=== PATIENT | male | born 1960 | race Two or more races ===

== ENCOUNTER 2019-05-02 21:32 | Inpatient (IN) | payer BC ==
[~2019-05-02] VITALS: Ht 177.8 cm; Wt 72.8 kg
[2019-05-02] MEDS ORDERED: PIPERACILLIN-TAZOB 3.375GM 100 ML IV ONE (22:00)
[2019-05-02] MEDS ORDERED: VANCOMYCIN 1GM/250ML 250 ML IV ONE (22:00)
[2019-05-02 22:58] LABS: Basophils # (auto) 0.1 uL; Basophils % (auto) 0.6 % (0.0-2.0); Eosinophils # (auto) 0.3 uL; Eosinophils % (auto) 2.6 % (0.0-7.0); Hematocrit 40.3 % (41.0-53.0); Hemoglobin 13.1 g/dL (13.5-17.5); Lymphocytes # (auto) 2.4 uL; Lymphocytes % (auto) 23.1 % (10.0-50.0); Mean Corpuscular Hemoglobin 27.3 pg (28.0-32.0); Mean Corpuscular Hgb Conc. 32.6 g/dL (32.0-36.0); Mean Corpuscular Volume 83.6 fL (80.0-100.0); Monocytes % (auto) 9.4 % (0.0-12.0); Neutrophils # (auto) 6.6 uL; Neutrophils % (auto) 64.3 % (37.0-80.0); Platelet Count (auto) 399 10^3/uL (140-450); Red Blood Cells 4.82 10^6/uL (4.5-5.90); Red Cell Distribution Width 14.3 % (11.8-14.3); White Blood Cell 10.4 10^3/uL (4.4-10.8)
[2019-05-02 23:10] LABS: Calcium 9.7 mg/dL (8.5-10.1); Potassium 4.2 mmol/L (3.5-5.1)
[2019-05-02 23:13] LABS: Bilirubin, Total 0.5 mg/dL (0.2-1.0); Total Protein 8.7 g/dL (6.4-8.2)
[2019-05-03] MEDS ORDERED: MORPHINE SULFATE 4 MG/ML SYR/VIAL ONE (04:04)
[2019-05-03] MEDS ORDERED: ONDANSETRON HCL 4 MG/2 ML VIAL ONE (04:04)
[2019-05-03] MEDS ORDERED: ACETAMINOPHEN 325 MG TAB PO PRN (06:15)
[2019-05-03] MEDS ORDERED: ONDANSETRON HCL 4 MG/2 ML VIAL IV PRN (06:15)
[2019-05-03] MEDS ORDERED: MORPHINE SULF INJ 2 MG/ML SYRINGE 1ML IV PRN (06:15)
[2019-05-03] MEDS ORDERED: VANCOMYCIN PER PHARMACY 0 MG IV SCH (06:15)
[2019-05-03] MEDS ORDERED: DEXTROSE (50%) 50ML SYRG IV PRN (06:30)
[2019-05-03] MEDS: SODIUM CHLORIDE 0.9% 1,000 ML IV SCH ×2 (06:57→19:00)
[2019-05-03 07:24] LABS: Basophils # (auto) 0.1 uL; Basophils % (auto) 0.9 % (0.0-2.0); Eosinophils # (auto) 0.2 uL; Eosinophils % (auto) 2.4 % (0.0-7.0); Hematocrit 37.1 % (41.0-53.0); Hemoglobin 12.2 g/dL (13.5-17.5); Lymphocytes % (auto) 19.7 % (10.0-50.0); Mean Corpuscular Hemoglobin 27.6 pg (28.0-32.0); Mean Corpuscular Volume 83.8 fL (80.0-100.0); Monocytes % (auto) 9.4 % (0.0-12.0); Neutrophils # (auto) 6.9 uL; Neutrophils % (auto) 67.6 % (37.0-80.0); Platelet Count (auto) 342 10^3/uL (140-450); Red Blood Cells 4.43 10^6/uL (4.5-5.90); White Blood Cell 10.2 10^3/uL (4.4-10.8)
[2019-05-03 07:37] LABS: BUN/Creatinine Ratio 14.9; Calcium 9.1 mg/dL (8.5-10.1); Potassium 4.2 mmol/L (3.5-5.1)
[2019-05-03] MEDS: ACCU-CHEK COMFORT CURVE STRIP VI SCH ×4 (08:00→20:00)
[2019-05-03 08:25] VITALS: BP 159/98
[2019-05-03 08:29] VITALS: BP 159/98
[2019-05-03] MEDS: PIPERACILLIN-TAZOB 3.375GM 100 ML IV SCH ×3 (08:52→21:53)
[2019-05-03] MEDS: PANTOPRAZOLE 40 MG TAB PO SCH (08:53)
[2019-05-03] MEDS: HYDROcodone-ACET 5/325MG TAB PO PRN ×3 (08:53→20:33)
[2019-05-03] MEDS: InsuLIN REG 1unit/0.01ml Soln (100units/ml) SC SCH ×4 (08:56→20:00)
[2019-05-03] MEDS ORDERED: METF-370 PO (09:01)
[2019-05-03] MEDS ORDERED: GLIP5TAB12 PO (09:01)
[2019-05-03] MEDS ORDERED: SITA50TA PO (09:01)
[2019-05-03] MEDS ORDERED: CYCL7.5T15 PO (09:01)
[2019-05-03] MEDS ORDERED: NAP500T PO (09:01)
--- NOTE | 2019-05-03 12:20 | NUR ---
WOUND CARE NOTE: Wound care in to see patient per wound care request regarding "wound to occipital". Bedside nurse took photograph of patient's wound upon admission for reference. Patient is 59 years old male with admitting diagnosis of Insect Bite with Cellulitis. He has history of DM. Patient is resting in bed in Rm 285B. He's awake, alert and fully oriented. He's in no stated pain at this time. He's ambulatory and self turn and reposition. His current Sarath score is 22. Noted patient's posterior distal head/neck area is dark red, and indurated. There's two open draining wound to proximal (0.5x1cm) and to distal (0.5x0.5cm). Patient and reported that wound started about eight days ago. Patient noted a pimple like to lower head/neck area and progress during the day with redness and swelling. patient and thinks that patient got bitten by spider. Cleansed patient's posterior neck wound with wound cleanser, patted dry with sterile gauze, applied Thera honey gel, covered with absorbent pad and secured with Medipore tape. Patient tolerated well and denies any other wound. RECOMMENDATION: Daily/PRN dressing change to posterior neck wound per MD order, Dietary consult, continue monitoring by wound care while patient is hospitalized. Addendum: 05/03/19 at 1746 by Anjali Curtis RN Amended: Links added.
[2019-05-03 12:35] VITALS: BP 148/78
[2019-05-03] MEDS: VANCOMYCIN 1,250 MG in D5W 5% 250 ML IV SCH (14:20)
[2019-05-03 17:24] VITALS: BP 146/94
[2019-05-03] MEDS ORDERED: AMLO5TAB15 PO (18:03)
[2019-05-03 20:00] VITALS: BP 161/101
[2019-05-03 23:21] VITALS: BP 161/101
[2019-05-04] MEDS: VANCOMYCIN 1,250 MG in D5W 5% 250 ML IV SCH ×2 (01:51→14:24)
[2019-05-04] MEDS: PIPERACILLIN-TAZOB 3.375GM 100 ML IV SCH ×4 (03:45→21:03)
[2019-05-04] MEDS: ACCU-CHEK COMFORT CURVE STRIP VI SCH ×7 (03:59→23:49)
[2019-05-04] MEDS: InsuLIN REG 1unit/0.01ml Soln (100units/ml) SC SCH ×7 (03:59→23:50)
[2019-05-04 05:10] VITALS: BP 145/97
--- NOTE | 2019-05-04 08:00 | NUR ---
Received pt resting in bed, call light within reach, pt reports pain on rt posterior side of neck 05/10, will medicate pt as order, will continue to monitor pt.
[2019-05-04] MEDS: HYDROcodone-ACET 5/325MG TAB PO PRN ×2 (08:13→19:42)
[2019-05-04 09:09] VITALS: BP 136/89
[2019-05-04] MEDS: SODIUM CHLORIDE 0.9% 1,000 ML IV SCH ×2 (09:28→23:07)
[2019-05-04] MEDS: PANTOPRAZOLE 40 MG TAB PO SCH (09:29)
[2019-05-04] MEDS: amLODIPine BESYLATE 5 MG TAB PO SCH (09:29)
--- NOTE | 2019-05-04 10:05 | NUR ---
Dressing change Cleansed patient's posterior neck wound with wound cleanser, patted dry with sterile gauze, applied Thera honey gel, covered with absorbent pad and secured with Medipore tape.
--- NOTE | 2019-05-04 11:15 | NUR ---
Dr. Lynne at bed side to see pt, doctor discussed the plan of care with pt.
[2019-05-04 14:49] VITALS: BP 140/84
[2019-05-04 17:06] VITALS: BP 141/84
--- NOTE | 2019-05-04 19:30 | NUR ---
Opening Shift Note Assumed care of patient, awake and alert oriented x4. No S/S of distress/SOB noted. Bed is in lowest locked position with bed rails up x2 and call light is within reach of patient. Instructed on POC and to call for assist PRN. Instructed patient that they will be NPO after midnight incase of procedure. Patient verbalized understanding.
--- NOTE | 2019-05-04 21:25 | NUR ---
Dressing changed Cleansed patient's posterior neck wound with wound cleanser, patted dry with sterile gauze, applied and Thera honey gel, covered with absorbent pad and secured with Medipore tape.
[2019-05-04 22:00] VITALS: BP 154/94
[2019-05-05] MEDS: VANCOMYCIN 1,250 MG in D5W 5% 250 ML IV SCH ×2 (02:02→14:15)
[2019-05-05] MEDS: ACCU-CHEK COMFORT CURVE STRIP VI SCH ×6 (03:17→23:13)
[2019-05-05] MEDS: PIPERACILLIN-TAZOB 3.375GM 100 ML IV SCH ×4 (03:17→20:27)
[2019-05-05] MEDS: InsuLIN REG 1unit/0.01ml Soln (100units/ml) SC SCH ×6 (03:23→23:35)
[2019-05-05 05:00] VITALS: BP 142/97
[2019-05-05] MEDS: HYDROcodone-ACET 5/325MG TAB PO PRN ×2 (06:48→23:12)
[2019-05-05 08:37] VITALS: BP 158/90
[2019-05-05] MEDS: amLODIPine BESYLATE 5 MG TAB PO SCH (09:03)
--- NOTE | 2019-05-05 10:00 | NUR ---
Dressing change on right neck as per order. Noted moderate pus.
--- NOTE | 2019-05-05 12:11 | NUR ---
Nutrition Assessment Notes please see attached link for complete assessment Est. Needs BW [id number] kcal (23-25 kcal/kgBW), 85-93 gms pro (1.0-1.1 gms/kgBW). Will continue to monitor pertinent labs and reassess nutrient need prn Addendum: 05/05/19 at [address] Amended: Links added.
[2019-05-05 12:59] VITALS: BP 137/82
[2019-05-05] MEDS: SODIUM CHLORIDE 0.9% 1,000 ML IV SCH ×2 (14:15→23:36)
--- NOTE | 2019-05-05 15:30 | NUR ---
Warm moist compress done on right neck as per Dr. Arrington's order.
[2019-05-05] MEDS: PANTOPRAZOLE 40 MG TAB PO SCH (15:39)
--- NOTE | 2019-05-05 16:10 | NUR ---
ANESTHESIA REACTION Per Xi, patient's , patient has anesthesia reaction before: vomiting and hives. Will hand over to night RN and then it can be handed over tomorrow by AM RN to OR staff.
[2019-05-05 16:35] VITALS: BP 147/81
--- NOTE | 2019-05-05 19:40 | NUR ---
Opening Shift Note Assumed care of patient, awake and alert oriented x4. No S/S of distress/SOB noted. Bed is in lowest locked position with bed rails up x2 and call light is within reach of patient. Instructed on POC and to call for assist PRN. Instructed patient that they will be NPO after midnight for procedure. Patient verbalized understanding.
[2019-05-05 21:02] LABS: INR 0.94 (0.9-1.15); Partial Thromboplastin Time 28.4 sec (23.64-32.05)
[2019-05-05 22:00] VITALS: BP 136/75
--- NOTE | 2019-05-05 23:30 | NUR ---
Consents for procedure signed and placed in chart.
[2019-05-06] MEDS: VANCOMYCIN 1,250 MG in D5W 5% 250 ML IV SCH ×2 (01:36→14:00)
[2019-05-06] MEDS: PIPERACILLIN-TAZOB 3.375GM 100 ML IV SCH ×4 (03:06→20:57)
[2019-05-06] MEDS: ACCU-CHEK COMFORT CURVE STRIP VI SCH ×6 (03:41→23:46)
[2019-05-06] MEDS: InsuLIN REG 1unit/0.01ml Soln (100units/ml) SC SCH ×6 (03:41→23:47)
[2019-05-06 05:07] VITALS: BP 146/90
--- NOTE | 2019-05-06 07:26 | NUR ---
CLOSING NOTE: Care endorsed to day shift nurse. Notified him about anesthesia reaction of patient getting vomiting and hives. Day RN to notify OR nurse to OR staff.
[2019-05-06] MEDS ORDERED: fentaNYL CITRATE 100 MCG/2 ML VL ONE (08:19)
[2019-05-06 09:00] VITALS: BP 154/101
[2019-05-06] MEDS ORDERED: PROPOFOL 10 MG/ML 20 ML IV ONE (09:33)
[2019-05-06] MEDS ORDERED: MEPERIDINE HCL (25 MG/ML) 1ML VIAL ONE (09:33)
[2019-05-06] MEDS ORDERED: SODIUM CHLORIDE LOCK 10 ML ONE (09:33)
[2019-05-06] MEDS ORDERED: LIDOCAINE 2% (LOCAL ANESTH.) PF 5ml SDV ONE (09:33)
[2019-05-06] MEDS ORDERED: MIDAZOLAM HCL 1MG/1ML-2 ML VIAL ONE (09:33)
[2019-05-06] MEDS ORDERED: ONDANSETRON HCL 4 MG/2 ML VIAL ONE (09:33)
[2019-05-06] MEDS ORDERED: ceFAZolin 1GM/50ML 50 ML IV ONE (09:45)
[2019-05-06] MEDS: PANTOPRAZOLE 40 MG TAB PO SCH (10:00)
[2019-05-06] MEDS: amLODIPine BESYLATE 5 MG TAB PO SCH (10:00)
[2019-05-06] MEDS ORDERED: SUCCINYLCHOLINE CHLORIDE 20 MG/ML 10ML VIAL IV ONE (10:14)
[2019-05-06] MEDS ORDERED: ROCURONIUM 10MG/ML 10ML VIAL IV ONE (10:14)
[2019-05-06] MEDS ORDERED: HYDROmorphone HCL 2 MG/ML VL IV PRN (10:15)
[2019-05-06] MEDS ORDERED: ACCU-CHEK COMFORT CURVE STRIP VI ONE (10:15)
[2019-05-06] MEDS ORDERED: METOCLOPRAMIDE HCL 5MG/ml INJ 2ml VIAL IV ONE (10:15)
--- NOTE | 2019-05-06 12:50 | NUR ---
UNABLE TO OBTAIN 1300 VITALS . PT IS NOT ON THE FLOOR AT THIS TIME
[2019-05-06] MEDS: SODIUM CHLORIDE 0.9% 1,000 ML IV SCH (14:15)
[2019-05-06 17:00] VITALS: BP 135/82
[2019-05-06] MEDS ORDERED: InsuLIN REG 1unit/0.01ml Soln (100units/ml) IV ONE (17:45)
--- NOTE | 2019-05-06 19:13 | NUR ---
Critical blood sugar Patient 1600 blood glucose of 430. Rechecked after 10 minutes and reading was 407. Gave 15 units regular insulin then paged hospitalist. Reassessed blood sugar, reading was 396. At 1755 Hospitalist prescribed 5 units regular insulin IV then call in 1 hour with results. Assessed blood sugar at 1855 with reading of 391. Hospitalist instructed to hold discharge for today and prescribe lantus 10 units once for tonight. No s/s of distress from patient. Will continue to monitor.
[2019-05-06] MEDS ORDERED: INSULIN LANTUS (GLARGINE) 1 /0.01ml (100units/ml) SC ONE (19:15)
--- NOTE | 2019-05-06 19:50 | NUR ---
OPENING SHIFT NOTE RECEIVED REPORT FROM DAY SHIFT RN. PATIENT SITTING UP IN BED IN FROM DINNER TRAY. NO SIGNS OR SYMPTOMS OF DISTRESS OR SOB. NO PAIN NOTED OR REPORTED AT THIS TIME. PATIENT STATUS POST I&D OF WOUND ON THE BACK OF NECK. DRESSING CLEAN, DRY AND INTACT. NO DRAINAGE PRESENT AT THIS TIME. PATIENT A/O X4, AMBULATORY. UPDATED PATIENT ON POC, VERBALIZED UNDERSTANDING. BED LOCKED IN LOW POSITION, CALL LIGHT WITHIN REACH. WILL CONTINUE TO MONITOR PATIENT Q1 AND PRN.
[2019-05-06 22:00] VITALS: BP 119/76
[2019-05-07] MEDS: VANCOMYCIN 1,250 MG in D5W 5% 250 ML IV SCH ×2 (02:02→14:00)
[2019-05-07] MEDS: ACCU-CHEK COMFORT CURVE STRIP VI SCH ×3 (04:16→11:46)
[2019-05-07] MEDS: PIPERACILLIN-TAZOB 3.375GM 100 ML IV SCH ×3 (04:16→15:00)
[2019-05-07] MEDS: InsuLIN REG 1unit/0.01ml Soln (100units/ml) SC SCH ×3 (04:16→11:46)
[2019-05-07] MEDS: SODIUM CHLORIDE 0.9% 1,000 ML IV SCH (04:16)
[2019-05-07 05:00] VITALS: BP 137/85
--- NOTE | 2019-05-07 07:40 | NUR ---
OPENING SHIFT NOTE: Report received from NOC RNJennifer. Assumed care of patient. Patient resting quietly in bed. No signs/symptoms of pain. Bed in lowest position, rails x2 up and call light within reach. Updated on plan of care. Will continue to monitor.
[2019-05-07 08:47] VITALS: BP 137/78
[2019-05-07] MEDS: amLODIPine BESYLATE 5 MG TAB PO SCH (09:41)
[2019-05-07] MEDS: PANTOPRAZOLE 40 MG TAB PO SCH (09:42)
[2019-05-07 11:25] VITALS: BP 135/86
[2019-05-07] MEDS ORDERED: InsuLIN REG 1unit/0.01ml Soln (100units/ml) SC ONE (11:30)
--- NOTE | 2019-05-07 11:30 | NUR ---
MD: Dr Kylie Lynne at bedside.
[2019-05-07 13:59] VITALS: BP 137/78
--- NOTE | 2019-05-07 14:50 | NUR ---
WOUND CARE: S/W Dr Arrington regarding surgical wound and wound care instructions. Patient still with surgical dressing in place. Instructed to leave in place, instruct patient to remove dressing and packing tomorrow. Patient may shower then and allow water to run into the wound. Pat dry and may cover with gauze or bandage changing as needed. Patient to follow up with Dr Arrington in 1-2 weeks and is to call his office and make an appointment.
--- NOTE | 2019-05-07 15:15 | NUR ---
DISCHARGE: Discharge instructions given as ordered. Encourage to follow up with PMD as instructed. All questions and concerns addressed. Patient verbalized understanding. Medication reconciliation form completed and copy given to patient. IV removed with catheter intact, pressure dressing applied. Patient walked self out of hospital escorted by family member. No distress noted at time of departure.
== END 2019-05-07 15:15 | disposition home or self-care (01) | DRG 603 ==
LOC: ER 21:32 → OVERFLOW 21:33 → WEST WING 05-03 07:48
PROVIDERS: ADMIT Nurse Practitioner Family; ATTEND Family Medicine
PROC: 0W900ZZ Drainage of Head, Open Approach (ICD-10-PCS; principal; 2019-05-06 10:24)
DX: L03.811 Cellulitis of head [any part, except face] (principal); W57.XXXA Bitten or stung by nonvenomous insect and other nonvenomous arthropods, initial encounter; Z79.84 Long term (current) use of oral hypoglycemic drugs; E11.65 Type 2 diabetes mellitus with hyperglycemia; Z83.3 Family history of diabetes mellitus; L02.811 Cutaneous abscess of head [any part, except face]; Y93.89 Activity, other specified; Y92.89 Other specified places as the place of occurrence of the external cause; Y99.8 Other external cause status
CPT/HCPCS: 36415; 70450; 70490; 71045; 80048; 80053; 80202; 82962; 83036; 83605; 85025; 85610; 85730; 87040; 87070; 87075; 87077; 87186; 87205; 96365; 96367; G0378; J0330; J0690; J1815; J2001; J2250; J2405; J2543; J2704; J7060